=== PATIENT | male | born 1975 | race Hispanic/Latino ===

== ENCOUNTER 2017-03-28 05:40 | Emergency (ER) | payer SELFPAY ==
[~2017-03-28] VITALS: Ht 185.4 cm; Wt 108.9 kg
[2017-03-28] MEDS ORDERED: XARELTO20 MG PO (06:03)
[2017-03-28] MEDS ORDERED: METHADONE HCL10 MG PO (06:03)
--- NOTE | 2017-03-29 14:23 | EKG ---
[facility] [address] [facility] [address] [facility] [place], [place] [address] Signed Baseline artefact Sinus bradycardia Otherwise normal ECG No previous ECGs available Confirmed by PATRICE TERAN MD ([id number]) on 03/29/2017 2:23:02 PM Electronically Signed By: PATRICE TERAN MD 03/29/17 1423 PATIENT NAME: DONALDO TOMLINSONDRO Electrocardiogram DATE OF : 73 PHYSICIAN: PATRICE TERAN MD REPORT #: [id number] REPORT IS CONFIDENTIAL AND NOT TO BE RELEASED WITHOUT AUTHORIZATION
== END 2017-03-28 07:37 | disposition home or self-care (01) ==
LOC: ED 05:40 → EDBD 05:41 → ED 05:41
DX: F41.9 Anxiety disorder, unspecified (principal); R93.5 Abnormal findings on diagnostic imaging of other abdominal regions, including retroperitoneum; F17.200 Nicotine dependence, unspecified, uncomplicated; Z79.899 Other long term (current) drug therapy
CPT/HCPCS: 71010; 71260; 80053; 83880; 84484; 85025; 85379; 93005; 93010; 99284; Q9967